=== PATIENT | female | born 1980 | race African-American/Black ===

== ENCOUNTER 2019-02-14 08:26 | Emergency (ER) | payer MEDICAID, OTHER ==
[~2019-02-14] VITALS: Ht 175.3 cm; Wt 90.7 kg
[2019-02-14 09:09] VITALS: BP 132/78
== END 2019-02-14 10:39 | disposition home or self-care (01) ==
LOC: ER 08:26 → EDBD 08:26 → ER 10:33
DX: S86.911A Strain of unspecified muscle(s) and tendon(s) at lower leg level, right leg, initial encounter (principal); F41.9 Anxiety disorder, unspecified; F17.210 Nicotine dependence, cigarettes, uncomplicated; X58.XXXA Exposure to other specified factors, initial encounter; Y93.01 Activity, walking, marching and hiking; Y92.89 Other specified places as the place of occurrence of the external cause; Y99.8 Other external cause status

== ENCOUNTER 2019-02-15 01:13 | Emergency (ER) | payer MEDICAID ==
[~2019-02-15] VITALS: Ht 162.6 cm; Wt 86.7 kg
[2019-02-15 03:48] VITALS: BP 155/99
== END 2019-02-15 03:53 | disposition home or self-care (01) ==
LOC: ER 01:15
DX: E03.9 Hypothyroidism, unspecified (principal); F20.9 Schizophrenia, unspecified; R09.81 Nasal congestion; E07.9 Disorder of thyroid, unspecified; F17.210 Nicotine dependence, cigarettes, uncomplicated; Z76.0 Encounter for issue of repeat prescription; Z88.8 Allergy status to other drugs, medicaments and biological substances; Z91.19 Patient's noncompliance with other medical treatment and regimen
CPT/HCPCS: 81025

== ENCOUNTER 2019-03-24 21:36 | Emergency (ER) | payer MEDICAID ==
[~2019-03-24] VITALS: Ht 172.7 cm; Wt 77.1 kg
[2019-03-24 22:00] VITALS: BP 161/97
== END 2019-03-24 23:02 | disposition left against medical advice (07) ==
LOC: EDBD 21:36 → ER 21:38
DX: R51 Headache (principal); Z53.21 Procedure and treatment not carried out due to patient leaving prior to being seen by health care provider